=== PATIENT | male | born 1960 | race American Indian/Alaskan Native ===

== ENCOUNTER 2019-06-04 07:58 | Day surgery (SDC) | payer OTHER ==
[~2019-06-04 07:58] MED LIST: DIPRIVAN 10 MG/ML IV ONE; NACL 0.9% 1000 ML 1,000 ML IV SCH
--- NOTE | 2019-06-04 09:13 | Anesthesia Day of Surgery ---
Anesthesia Day of Surgery - Day of Surgery Patient Examined: Yes Patient H&P Reviewed: Yes Patient is NPO: Yes
--- NOTE | 2019-06-04 09:19 | Anesthesia Consultation ---
Anesthesia Consult and Med Hx Date of service: 06/04/19 - Airway Anesthetic Teeth Evaluation: Chipped ROM Head & Neck: Adequate Mental/Hyoid Distance: Adequate Mallampati Class: Class II Intubation Access Assessment: Probably Good - Pre-Operative Health Status ASA Pre-Surgery Classification: ASA2 Proposed Anesthetic Plan: MAC - Pulmonary Hx Smoking: Yes (Quit two months ago) Hx Pneumonia: Yes (Last month-treated with ABX and pt states better) - Cardiovascular System Hx Hypertension: Yes - Endocrine Hx Insulin Dependent Diabetes: Yes (BS 149)
--- NOTE | 2019-06-04 10:55 | Procedure Note ---
Date of procedure: 06/04/19 Pre-op diagnosis: Colon Polyp Screening Post-op diagnosis: other (Multiple, Rectal Polyps/ No Diverticular Disease or Internal Hemorrhoids noted/Prep was fair) Procedure: Colonoscopy with Cold Biopsy and cold, Snare Polypectomy Anesthesia: IVONNE Surgeon: RADHA RAZA Estimated blood loss: minimal Pathology: list Specimen disposition: to lab Condition: stable Disposition: same day (Hold aspirin and NSAID for 4 days; otherwise resume home medication. Follow up in 1 to 2 weeks ([phone]).)
[2019-06-04 11:25] VITALS: BP 132/82
--- NOTE | 2019-06-04 12:16 | Post Anesthesia Evaluation ---
- Post Anesthesia Evaluation Patient Participated: Yes Airway Patent: Yes Stable Respiratory Function: Yes Nausea/Vomiting: No Temp > 96.8F: Yes Pain Manageable: Yes Adequeate Hydration: No Anesthesia Complications: No Block Receding Appropriately: Not Applicable Patient on Ventilator: No
--- NOTE | 2019-06-04 15:24 | Operative Report ---
PROCEDURE: Colonoscopy. INDICATIONS: A 58-year-old -[place] gentleman, who has a family history of cancer as well as prior history of colon polyp. Last colonoscopy was done several years ago. DESCRIPTION OF PROCEDURE: The procedure was done after getting informed consent with MAC anesthesia. Initial rectal exam was unremarkable. Instrument was passed through the rectum onto the cecum, which was identified with ileocecal valve and the appendiceal orifice. The terminal ileum was intubated and showed normal mucosa. Visualization was fair. The mucosa was washed with copious amounts of water. The cecum was viewed on the retroverted view and examined on the retroverted view. No additional pathology was noted. Cecum, ascending colon, transverse colon, descending colon, and sigmoid showed normal mucosa. The rectum showed multiple polyps, one was removed by snare polypectomy without application of heat and others were used via cold biopsy and there was minimal bleeding from the biopsy sites. No complications associated with the procedure. The rectum did not show any hemorrhoids on the retroverted view. ASSESSMENT: Colon polyp screening, family history of cancer, multiple rectal polyps. No diverticular disease or internal hemorrhoids noted. The prep was fair. PLAN: Plan is to have the patient avoid aspirin and aspirin-related products for the next few days. Followup in the office in 1-2 weeks' time and otherwise, resume home medications. The procedure was done in the GI lab with the assistance of the GI lab team, which included ASTER Mead as well as Luke avalos and with the assistance of Anesthesia. JOB# [id number] JOSE ANGEL/ULISES BAL
== END 2019-06-04 07:59 | disposition home or self-care (01) ==
LOC: GIO 07:58
DX: Z12.11 Encounter for screening for malignant neoplasm of colon (principal); K62.1 Rectal polyp; E78.00 Pure hypercholesterolemia, unspecified; I10 Essential (primary) hypertension; E11.9 Type 2 diabetes mellitus without complications; Z87.891 Personal history of nicotine dependence; Z80.0 Family history of malignant neoplasm of digestive organs; Z79.899 Other long term (current) drug therapy; Z79.4 Long term (current) use of insulin
CPT/HCPCS: 45380; 45385; 82962; 88305; J2704; J7030